=== PATIENT | female | born 1985 | race Caucasian/White ===

== ENCOUNTER 2017-02-16 21:47 | Inpatient (IN) | payer MEDICAID, OTHER ==
[2017-02-16] MEDS ORDERED: ZIPRASIDONE 20 MG VIAL IM PRN (21:51)
[2017-02-16] MEDS ORDERED: MAG HYDROX/AL HYDROX/SIMETH 30 ML CUP PO PRN (21:51)
[2017-02-16] MEDS ORDERED: LORazepam 1 MG TAB PO PRN (21:51)
[2017-02-16] MEDS ORDERED: MAGNESIUM HYDROXIDE 2,400 MG/10 ML CUP PO PRN (21:51)
[2017-02-17] MEDS: ARIPiprazole 10 MG TAB PO SCH (10:22)
[2017-02-17] MEDS: NICOTINE 14MG/24HR PATCH TRANSDERM SCH (10:24)
--- NOTE | 2017-02-17 12:41 | P.HP ---
Psychiatric H&P - . H&P Date: 02/17/17 History & Physical: IDENTIFYING DATA: Ms. Tobin is a 31-year-old female who presented to unit involuntarily with complaints of depression and suicidal ideation.. HISTORY OF PRESENT ILLNESS: I reviewed the medical record and interviewed her. According to the information from the EPS nurse she walked to police station in [facility] and told the officers that she is having thoughts of hanging herself. They called EMS and took her to [facility] emergency room. The EPS nurse noted that she had one prior suicide attempt last year for which she was hospitalized in a facility in [place]. During our interview her thinking was grossly disorganized. She was had difficulty staying on topic or explaining the reason for hospitalization. She perseverated on her marriage and extramarital affairs. Her thinking was so disorganized that it was unable to obtain a coherent history of present illness. 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 During the course of her conversation she described ideas of reference, thought broadcasting and thought insertion. At times she also appeared to be describing auditory hallucinations but when I ask questions to clarify the experience she gave a rambling and incoherent response. He signed consent for voluntary admission. She admits to feeling depressed and anxious. She denied current suicidal thoughts. She talked about drinking and smoking marijuana but denied that she has a problem "like my ." She gave an incoherent response to questions about current mental health treatment. PAST PSYCHIATRIC HISTORY: She appeared perplexed when I asked about outpatient mental health treatment. However, she admitted she had been in hospitals "like this" in [place], [place] and [place]. She cannot remember the reason for the admissions or the name of the facilities. PAST MEDICAL HISTORY: I believe she denied a history of major medical illness season. ALLERGIES: NO KNOWN DRUG ALLERGIES. SUBSTANCE USE HISTORY: She described occasional alcohol use and appeared to talk about marijuana use. She denied involvement in a substance use treatment program. FAMILY PSYCHIATRIC/SUBSTANCE USE HISTORY: She is unaware of family history of psychiatric substance use problems. LEGAL HISTORY: She talked about legal problems when she was young and when I asked her to explain herself she began talking about the proverb of "Nikhil in the whale" ... "It was like Nikhil in the whale. I was Nikhil but I was in the whale for a longer period of time ... ." SOCIAL HISTORY: She is born in [place]. I believe her parents . She graduated from high school. She has been from her since October 2015. He is [place] and lives with their 2 sons on [facility]. She alleged that she visits her son's on weekends but during the same sentence digressed to talking about having been barred from [facility]. She is currently employed a [employer]. He lives alone in an apartment in [facility] MENTAL STATUS EXAM: He presented as a casually groomed and morbidly obese 31- year-old female. She made eye contact and at times did not appear to attend to the exam. She had no distinguishing features or prominent physical abnormalities. She had dramatic facial expression. During the interview she frequently furrowed her brows and had extreme and frequent eye movements. She showed no abnormality of psychomotor activity. She slow but steady gait. Her speech was spontaneous with normal rate, rhythm and volume. She had no articulation difficulties. Her affect was dramatic and labile. She denied suicidal ideation or wishes. She denied homicidal ideation. She expressed feelings of hopelessness but denied helplessness or worthlessness. She ruminated on interpersonal relationships, extramarital affairs and her . She expressed ideas of reference, thought broadcasting and thought insertion. At time she was guarded and suspicious. She did not express an organized or coherent delusional belief. Her thinking was grossly disorganized , nonlinear the here and at times incoherent. She talked at one point about "hearing voices" but I was not certain whether she was describing auditory hallucinations. She did not appear to be responding to internal stimuli. STRENGTHS: Stable housing, stable income, good physical health. WEAKNESSES: Chronic mental illness, poor compliance with mental health treatment. IMPRESSION: She is a 31-year-old female who presented to unit with complaints of depression and suicidal ideation. However, her presentation is dominated by a marked disorganization in his thinking and other psychotic symptoms including ideas reference, thought insertion and thought broadcasting. Her thinking is so disorganized that she is unable to provide a coherent present or past history. She does not appear depressed, irritable hypomanic or manic. I suspect that she has a schizophrenia as opposed to a mood disorder. She should be treated on an inpatient basis with a combination of psychopharmacology and multimodal therapy. PRINCIPLE DIAGNOSIS: Unspecified psychotic disorder, rule out schizophrenia, rule out substance-induced psychotic disorder RECOMMENDATION: Continue inpatient hospitalization. The medicine for initial physical exam and medical history. idea worker to complete psychosocial assessment and obtain collateral information if possible. Obtain any records from [facility]. Begin Abilify 10 mg daily for the treatment of psychotic symptoms. Encourage participation in therapeutic groups and activities. Evaluate clinical status response to treatment on a daily basis. Allergies Allergy/AdvReac Type Severity Reaction Status Date / Time No Known Allergies Allergy Verified 02/16/17 23:00 Vital Signs Temp 97.9 F 02/17/17 03:22 Pulse 92 02/17/17 03:22 Resp 18 02/17/17 03:22 BP 135/61 02/17/17 03:22 Pulse Ox 97 02/16/17 23:27 Intake & Output 02/16/17 02/17/17 02/17/17 18:59 06:59 18:59 Weight 147.5 kg 02/17/17 08:51 02/17/17 09:40 02/17/17 12:36
[2017-02-18 04:59] VITALS: BMI 49.4
--- NOTE | 2017-02-18 08:01 | CONS ---
DATE OF CONSULTATION: CHIEF COMPLAINT: Major depression. HISTORY OF PRESENT ILLNESS: This is the first psych admission for this 31-year-old G2, P2, A0 obese white female. She came to emergency room because she felt overwhelmed, was severely depressed and was considering suicide. She has not been under psychiatric care before and she does not take any medication. REVIEW OF SYSTEMS: She has no headaches, chest pain, abdominal pain, vomiting, diarrhea, urinary complaints, diabetes, etc. Past medical history, family history and personal and social histories are unremarkable and noncontributory. She is on no medications and not allergic to any. She smokes cigarettes a day and she has had no surgery. PHYSICAL EXAMINATION: Blood pressure 115/75 with a ( ) 16, and she is afebrile. GENERAL: She appeared to be obese and in no acute distress. She was very depressed. Head, ears, eyes, nose, mouth and throat were normal. Neck veins not distended. Thyroid was not enlarged. Chest is clear. Cardiac exam is normal. The abdomen was protuberant and soft. EXTREMITIES: Normal. Neurologically, she is intact. IMPRESSION: Major depression with suicidal thoughts. RECOMMENDATIONS: None.
[2017-02-18] MEDS: ARIPiprazole 10 MG TAB PO SCH (09:33)
[2017-02-18] MEDS: NICOTINE 14MG/24HR PATCH TRANSDERM SCH (09:33)
--- NOTE | 2017-02-18 14:55 | P.PN ---
Progress Note - Text CC: " [I was struggling, I got overwhelmed, and then I started thinking about suicide. ] " History of Present Illness: Patient presented to local police telling them that she was having thoughts of hanging herself they called EMS and they took her to the [facility] emergency room. She then was transferred to [facility]. Patient reports that she was at her desk and there was a girl trying to put a cigarette on her desk and a voice Telling her speak speak up. She came back from her break and noticed something happening on her Facebook related to timeline. She couldn't explain what was actually happening but feels that the phone was doing something. States she has one voice this is been going on for about 1 month and said others speak through this one voice. Denies having ever had auditory hallucinations in the past but endorses the television speaking to her, seeing black figures in her backyard. Patient reports that she has not been able to focus for some time now. Reports she feels drained today even though she slept well. Patient asks if we called her work to let them know she was here. Patient reports this is her 4th admission to psychiatric inpatient setting. Denies she was prescribed medicine after discharge. Labs: [TSH within normal limits ] Mental Status Examination: Patient alert and oriented 3, poor eye contact, fair groomed in street clothing. Frequently looking at door, feeling as if someone was there. Speech low volume, decreased rate and production. Coherent, logical and circumstantial, tangential thought process. No KENNY, no FOI. + TB/TI] +auditory and visual hallucinations. +paranoid ideation, no brittany delusions + IOR. Memory [intact] Cognition average Mood [blunt], affect and flat, congruent with mood. Denies suicidal ideation, denies homicidal ideation. Insight limited; Judgement grossly intact for treatment purposes Assessment: [31 year old female presented to our unit with and suicidal ideation. It was noted that she had disorganized thought process and psychotic symptoms including ideas of reference, thought insertion and thought broadcasting. She continues to be paranoid, has , ideas of reference but no suicidal ideation or auditory hallucination. Plan: [Continue inpatient hospitalization for resolution of psychosis. Continue abilify 15mg qday. Will ask SW if she can meet with patient to call her work to let them know.
[2017-02-19] MEDS: ARIPiprazole 10 MG TAB PO SCH (08:54)
[2017-02-19] MEDS: NICOTINE 14MG/24HR PATCH TRANSDERM SCH (08:55)
--- NOTE | 2017-02-19 12:50 | P.PN ---
Progress Note - Text Interval history: Patient is seen in cross coverage today for Dr. Berg. She reports that she is feeling better. She feels like she can concentrate more now. She does seem to be tolerating the Abilify well. Mental status exam: She is alert and cooperative with the interview. Her mood is described as "calm." She does not verbalize any thoughts of harm to self or others. She does not voice any hallucinations. She does not show any agitation. She does not verbalize any paranoid thoughts. Her affect is restricted. Plan: We'll maintain current psychotropic medication. We will monitor for any medication side effects. Continue to cover this patient for Dr. Berg through the weekend.
[2017-02-20] MEDS: ARIPiprazole 10 MG TAB PO SCH (09:35)
[2017-02-20] MEDS: NICOTINE 14MG/24HR PATCH TRANSDERM SCH (09:35)
[2017-02-20] MEDS: ACETAMINOPHEN TAB 325 MG TAB PO PRN (09:35)
--- NOTE | 2017-02-20 17:32 | P.PN ---
Progress Note - Text Interval history: Patient is seen in cross coverage today for Dr. Berg. There is some question to whether the Abilify makes her tired. She states that after she eats her meals she feels like she needs to go to bed. She also does complain of some acid reflux. She does inquire regarding discharge planning. She says she is eating 3 meals a day here, whereas at home a lot of time she only eats one meal a day. Mental status exam: She is alert and cooperative with the interview. Her speech is fluent, not rapid or pressured. Thought processes are organized. Her mood overall appears to be improved. She denies any thoughts of harm to self or others. She denies any hallucinations. She does state that her concentration is doing better. She does not show any agitation. Plan: We'll change scheduling of Abilify to bedtime to see if this has any positive impact in terms of possible side effects. Dr. Berg resume care this patient starting tomorrow. We'll see if Dr. Escobar can follow-up regarding complaints of acid reflux.
[2017-02-21] MEDS: NICOTINE 14MG/24HR PATCH TRANSDERM SCH (09:55)
--- NOTE | 2017-02-21 15:49 | P.PN ---
Progress Note - Text CC: " [I'm feeling a lot better ] " History of Present Illness: Patient reports that she is definitely feeling better compared to when she came in and last Tuesday when we last met. Reports that her focus and concentration has improved she has also been in contact with her boss and that she did not lose her job. She states that she's had problems before but nothing as severe as this episode. No longer suicidal no homicidal ideation. Reports her sleep is good and that since the change of Abilify to bedtime, she is not sleeping during the day. Was able to give a coherent history of events leading up to her hospitalization. Labs: Reviewed labs Mental Status Examination: Patient alert and oriented 3, good eye contact, fair groomed in hospital attire. Speech normal volume, rate and production. Coherent, logical and circumstantial thought process. No KENNY, no FOI. [No TB/TW/ TI] Denied auditory and visual hallucinations. Denied paranoid ideation, delusions or IOR. Memory [grossly intact] Cognition[average] Recalled [3/0], [3/5]; Serial 7's [] Mood [euthymic], affect [full range, decreased intensity, congruent with mood. Denies suicidal ideation, denies homicidal ideation. Insight [partial]; Judgement [grossly intact] Assessment: [ 51-year-old female with a psychotic break and suicidal ideation admitted to the unit started on Abilify 10 mg and had a gradual response and today appearing euthymic without any psychosis. At this time the diagnoses will remain psychosis unspecified.] Plan: Patient wants to go home so she can return to work, there is no reason for her to remain longer. We will need to set up outpatient care
[2017-02-21] MEDS: ACETAMINOPHEN TAB 325 MG TAB PO PRN (20:24)
[2017-02-21] MEDS ORDERED: ARIPiprazole 10 MG TAB PO SCH (21:00)
[2017-02-22 06:53] VITALS: BP 111/51; PULSE 77; RESP 16; TEMP 98
[2017-02-22] MEDS ORDERED: PANTOPRAZOLE 40 MG TABLET PO SCH (07:30)
[2017-02-22] MEDS: NICOTINE 14MG/24HR PATCH TRANSDERM SCH (08:29)
--- NOTE | 2017-02-22 08:49 | P.DS ---
Providers Date of admission: 02/16/17 22:35 Attending physician: Anahy Berg MD Consults: 02/16/17 21:51 Consult Physician Routine Consulting Provider: Adams Escobar Consult Reason/Comments: follow up H & P Do you want consulting provider notified?: Yes Primary care physician: Adams Escobar - Discharge Diagnosis(es) (1) Psychoses Current Visit: Yes Status: Acute Onset Date: Unknown Hospital Course: Patient was admitted after going to a police station informing them she wanted to hang herself, she was brought to the ER and admitted on AVF. Her initial presentation was extreme thought disorganization, IOR, and paranoid ideation. Started on Abilify 10mg, and in a few days her thought process improved. She denied suicidal ideation, denied homicidal ideation. Her recall of events prior to her admission improved, she recognized she was unable to focus because of her thought disorganization. She made good use of the unit activities and expresses intent of continuing care in outpatient setting. She is safe for outpatient treatment. Patient Condition at Discharge: Stable Plan - Discharge Summary New Discharge Prescriptions: ARIPiprazole [Abilify] 10 mg PO HS #30 tab Discharge Medication List ARIPiprazole [Abilify] 10 mg PO HS #30 tab 02/22/17 [Rx] Discharge Disposition: HOME SELF-CARE
== END 2017-02-22 13:05 | disposition home or self-care (01) | DRG 885 ==
LOC: 3MHU 22:35
PROVIDERS: ADMIT Psychiatry & Neurology Addiction Medicine; ATTEND Psychiatry & Neurology Addiction Medicine
DX: F29 Unspecified psychosis not due to a substance or known physiological condition (principal); R45.851 Suicidal ideations; F32.9 Major depressive disorder, single episode, unspecified; E66.9 Obesity, unspecified; K21.9 Gastro-esophageal reflux disease without esophagitis; Z91.5 Personal history of self-harm
CPT/HCPCS: 84443

== ENCOUNTER 2018-01-11 02:19 | Inpatient (IN) | payer MEDICAID, OTHER ==
--- NOTE | 2018-01-11 02:59 | ED ---
Psych HPI - General Source: patient Mode of arrival: ambulatory <Daiana Rollins - Last Filed: 01/11/18 03:52> <Dom Diaz - Last Filed: 01/11/18 04:22> - General Chief Complaint: Psychiatric Symptoms Stated Complaint: mental health Time Seen by Provider: 01/11/18 02:32 - History of Present Illness Initial Comments: 32-year-old female patient presents to the emergency department today complaining of "seeing things". She reports she is here because she wants to make sure her "Boys are safe". Patient denies any suicidal or homicidal ideation. History is difficult to obtain as patient does exhibit flight of ideas and loose associations during interview. Patient states that she has been seeing spiders on her Bible, people in her kitchen that appear nickerson and assistant professor of biochemistry than normal people, she states that she has been seeing "gun holes" in her friends eyes, states she sees smoke coming from these holes. Patient states that she is supposed take medication however she does not want to. Patient states she is eating and sleeping. She denies any drug or alcohol use. Patient denies any current physical symptoms. Patient denies any recent rash, fever, chills, shortness breath, chest pain, abdominal pain, nausea, vomiting, diarrhea, constipation, back pain, numbness, tingling, dizziness, weakness, hematuria, dysuria, urinary urgency, urinary frequency, headache, visual changes , or any other complaints. (Daiana Rollins) - Related Data Home Medications Medication Instructions Recorded Confirmed No Known Home Medications [No 01/11/18 01/11/18 Known Home Medications] Allergies Allergy/AdvReac Type Severity Reaction Status Date / Time No Known Allergies Allergy Verified 01/11/18 02:29 Review of Systems ROS Other: All systems not noted in ROS Statement are negative. <Daiana Rollins - Last Filed: 01/11/18 03:52> ROS Other: All systems not noted in ROS Statement are negative. <Dom Diaz - Last Filed: 01/11/18 04:22> ROS Statement: Those systems with pertinent positive or pertinent negative responses have been documented in the HPI. Past Medical History Past Medical History: No Reported History History of Any Multi-Drug Resistant Organisms: None Reported Past Surgical History: Section Past Anesthesia/Blood Transfusion Reactions: No Reported Reaction Past Psychological History: Depression Smoking Status: Current every day smoker Past Alcohol Use History: None Reported Past Drug Use History: None Reported <Daiana Rollins - Last Filed: 01/11/18 03:52> General Exam Limitations: no limitations General appearance: alert, in no apparent distress, other (Physical well- developed, well-nourished adult female patient in no acute distress. Vital signs upon presentation are temperature 98.5F, pulse 74, respirations 18, blood pressure 126/84, pulse ox 98% on room air.) Eye exam: Present: normal appearance, PERRL, EOMI. Absent: scleral icterus, conjunctival injection, periorbital swelling ENT exam: Present: normal exam, normal oropharynx, mucous membranes moist Respiratory exam: Present: normal lung sounds bilaterally. Absent: respiratory distress, wheezes, rales, rhonchi, stridor Cardiovascular Exam: Present: regular rate, normal rhythm, normal heart sounds. Absent: systolic murmur, diastolic murmur, rubs, gallop, clicks GI/Abdominal exam: Present: soft, normal bowel sounds. Absent: distended, tenderness, guarding, rebound, rigid Neurological exam: Present: alert, oriented X3, CN II-XII intact Psychiatric exam: Present: normal affect, normal mood, other (Loose associations , flight of ideas). Absent: homicidal ideation, suicidal ideation Skin exam: Present: warm, dry, intact, normal color. Absent: rash <Daiana Rollins - Last Filed: 01/11/18 03:52> Vital Signs 01/11/18 02:21 Temperature 98.5 F Pulse Rate 74 Respiratory 18 Rate Blood Pressure 126/84 O2 Sat by Pulse 98 Oximetry Medical Decision Making <Daiana Rollins - Last Filed: 01/11/18 03:52> <Dom Diaz - Last Filed: 01/11/18 04:22> - Medical Decision Making 32-year-old female patient presented to the emergency department today exhibiting symptoms of psychosis. She is exhibiting flight of ideas, looseness of associations, and verbalizing reports of hallucinations. Patient denied suicidal or homicidal ideation. Patient was seen and evaluated by emergency psychiatric services. There is felt at this time she would benefit from inpatient admission. (Daiana Rollins) Patient was seen by mental health services, who will admit (Dom Diaz) Disposition <Daiana Rollins - Last Filed: 01/11/18 03:52> Decision Time: 04:22 <Dom Diaz - Last Filed: 01/11/18 04:22> Clinical Impression: Psychoses Disposition: TRANSFER TO PSYCH HOSP/UNIT Referrals: Adams Escobar MD [Primary Care Provider] - 1-2 days
[2018-01-11] MEDS ORDERED: MAGNESIUM HYDROXIDE 2,400 MG/10 ML CUP PO PRN (04:26)
[2018-01-11] MEDS ORDERED: MAG HYDROX/AL HYDROX/SIMETH 30 ML CUP PO PRN (04:26)
[2018-01-11] MEDS ORDERED: LORazepam 1 MG TAB PO PRN (04:26)
[2018-01-11] MEDS ORDERED: ZIPRASIDONE 20 MG VIAL IM PRN (04:26)
[2018-01-11 05:17] VITALS: BMI 46.0
[2018-01-11 07:40] LABS: Appearance,Urine Clear (Clear); Bilirubin,Urine Negative (Negative); Blood,Urine Negative (Negative); Color,Urine Light Yellow; Glucose,Urine (UA) Negative (Negative); Ketones,Urine Trace (Negative); Leukocyte Esterase,Urine Negative (Negative); Nitrite,Urine Negative (Negative); Protein,Urine Negative (Negative); Urobilinogen,Urine <2.0 mg/dL (<2.0)
[2018-01-11] MEDS: NICOTINE 14MG/24HR PATCH TRANSDERM SCH (08:38)
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
[2018-01-11 11:06] LABS: Urine Alcohol Negative (Negative); Urine Barbiturate Negative (Negative); Urine Cocaine Negative (Negative); Urine Methadone Negative (Negative); Urine Opiates Negative (Negative); Urine Phencyclidine Negative (Negative)
[2018-01-11] MEDS: ARIPiprazole 10 MG TAB PO SCH (11:18)
[2018-01-11] MEDS: ACETAMINOPHEN TAB 325 MG TAB PO PRN (17:12)
--- NOTE | 2018-01-11 18:08 | CONS ---
CONSULTATION CHIEF COMPLAINT: Acute psychosis. HISTORY OF PRESENT ILLNESS: This lady is in with the psychiatrist at this time and she will be re-evaluated at a different time when she is available. MMODL / IJN: [id number] /
[2018-01-12] MEDS: NICOTINE 14MG/24HR PATCH TRANSDERM SCH (09:54)
[2018-01-12] MEDS: ARIPiprazole 10 MG TAB PO SCH ×2 (09:55→21:44)
[2018-01-12] MEDS: ACETAMINOPHEN TAB 325 MG TAB PO PRN ×2 (09:55→21:43)
[2018-01-12 10:38] LABS: Basophils % (A) 0 %; Eosinophils # (A) 0.2 k/uL (0-0.7); Eosinophils % (A) 3 %; HCT 42.6 % (34.0-46.0); HGB 14.6 gm/dL (11.4-16.0); Lymphocytes # (A) 2.3 k/uL (1.0-4.8); Lymphocytes % (A) 28 %; MCH 29.5 pg (25.0-35.0); MCHC 34.2 g/dL (31.0-37.0); MCV 86.3 fL (80.0-100.0); Mean Platelet Volume 7.4; Monocytes # (A) 0.4 k/uL (0-1.0); Monocytes % (A) 5 %; Neutrophils # (A) 5.1 k/uL (1.3-7.7); Neutrophils % (A) 63 %; Platelet Count 288 k/uL (150-450); RBC 4.93 m/uL (3.80-5.40); RDW 12.3 % (11.5-15.5); WBC 8.1 k/uL (3.8-10.6)
--- NOTE | 2018-01-12 10:45 | P.PN ---
Progress Note - Text Progress Note Date: 01/12/18 Patient was seen for a follow-up examination. She has been taking her medications and attends groups. No behavioral issues. This is an obese ambulatory white female with adequate hygiene. She is polite and cooperative. She is somewhat hyperactive today. Her speech is spontaneous quite pressured with flight of ideas. She appears to be preoccupied with environmental issues, taoist issues, social issues etc. She said the petroleum oil is spilling polluting the water which comes and reuse it for growing vegetables and other things which are harmful to us, people of [facility] are fighting people of god, questioned the proof to say that Kevon was born on 10 of [birth year], talked about Bible, Koran, about Americans Indians and how they were treated with by a white people, said the word Jero means dumb people , Bhavani means all a and asked what means Og. She denies suicidal and homicidal ideas. But she believes we are living in an dangerous world and anything can happen to us. Her insight is poor and judgment is impaired quite grossly. She is well oriented with adequate memory. But she cannot concentrate and has flight of ideas. Plan: Increase Abilify to 10 mg twice a day. Continue groups and other plans.
[2018-01-12 11:12] LABS: ALT 9 U/L (9-52); AST 11 U/L (14-36); Albumin 3.9 g/dL (3.5-5.0); Alkaline Phosphatase 41 U/L (38-126); Anion Gap 14 mmol/L; Blood Urea Nitrogen 10 mg/dL (7-17); Calcium 9.4 mg/dL (8.4-10.2); Carbon Dioxide 25 mmol/L (22-30); Chloride 103 mmol/L (98-107); Cholesterol 174 mg/dL (<200); Glucose 96 mg/dL (74-99); HDL Cholesterol 53 mg/dL (40-60); LDL Cholesterol,Calculated 105 mg/dL (0-99); Sodium 142 mmol/L (137-145); Total Bilirubin 0.4 mg/dL (0.2-1.3); Total Protein 6.6 g/dL (6.3-8.2); Triglycerides 82 mg/dL (<150)
--- NOTE | 2018-01-12 17:24 | CONS ---
CONSULTATION CHIEF COMPLAINT: Depression and visual hallucinations. HISTORY OF PRESENT ILLNESS: This is another admission to the psych service for this 32-year-old white female. She is not a good historian and this may be related to her psychiatric issues. She does not seem to answer questions appropriately or reliably. Her history is probably better obtained in the psychiatrist's note. REVIEW OF SYSTEMS: She denies any constitutional symptoms other than having a sore throat for one month and some discomfort in her right ear. She denies any headaches, neurologic problems, shortness of breath, chest pain, cough, hemoptysis, heart disease, murmurs, hypertension, abdominal pain, nausea, vomiting, melena, hematochezia, jaundice, renal disease or failure, diabetes, etc. She has does not think she is on any medications and states she is not allergic to any. PAST SURGICAL HISTORY: When asked about surgery, she states she has had a . She has had 2 pregnancies and 2 children. SOCIAL HISTORY: She is not definite as to whether or not she smokes or drinks and she uses marijuana occasionally. She states she works at [employer]. PHYSICAL EXAMINATION: Blood pressure is 134/76 with a pulse of 80, respirations of 30 and she is afebrile. In general, she appeared to be slightly overweight and in no acute distress. Skin color is normal. Skin is warm, dry. Head, ears, eyes, nose, mouth, and throat were normal and neck veins were not distended. Chest is clear. Cardiac exam is normal sinus rhythm and no murmurs. The abdomen is soft and there are no masses. Extremities normal. Neurologically she seemed to be intact. IMPRESSION: 1. ? Schizophrenia. 2. Acute psychosis. RECOMMENDATIONS: None. MMODL / IJN: [id number] /
[2018-01-12 19:02] LABS: Hemoglobin A1C 5.3 % (4.0-6.0)
[2018-01-13] MEDS: NICOTINE 14MG/24HR PATCH TRANSDERM SCH (08:45)
[2018-01-13] MEDS: ARIPiprazole 10 MG TAB PO SCH ×2 (08:45→20:56)
--- NOTE | 2018-01-13 10:12 | P.PN ---
Progress Note - Text Progress Note Date: 01/13/18 Patient was seen for a routine follow-up examination. Today she talked about her and children living in [place] and she living in [place]. She said her gets lot of money in welfare in [place] and he doesn't want to come to [place] and work to make less money. Patient doesn't want to go to [place] because she doesn't like to live in [place] or to go through all the paperwork. She did not talk about restorationism today. This is an obese ambulatory white female with adequate hygiene. She is polite and cooperative. She does not show any psychomotor agitation or retardation. Her speech is spontaneous relevant and goal-directed. But she is over inclusive. Her mood is euthymic and affect is appropriate. She denies suicidal and homicidal ideas. She denies hallucinations and did not describe any delusional thinking. She is well oriented with adequate memory concentration etc. Plan: Continue Abilify 10 mg twice a day, groups and other therapies.
[2018-01-14 07:12] VITALS: RESP 16
[2018-01-14] MEDS: ARIPiprazole 10 MG TAB PO SCH ×2 (09:04→21:00)
--- NOTE | 2018-01-14 23:57 | P.PN ---
Progress Note - Text Progress Note Date: 01/14/18 Patient was seen today. She complains of visual hallucinations of seeing black figures and is wondering why she see these things. She also reports seeing her husbands spirit sometimes. She denies current symptoms of depression. She reports good sleep and appetite. She denies symptom of luis felipe. She says she did not to her groups today and states when people are talking loud it overwhelms her. She reports feeling tired and dizzy today and attributes it to the medications she is taking. Menatal status exam Patient is 32 year old woman. She is obese. She appears in fair grooming and hygiene. She is dressed casually. She maintains good eye contact. Her speech and thought process are pressured and tangentail. Her mood is reported as tired and affect constricted. She reports visual halluciantions that come and go. She denies auditory hallucinations. She denies paranoia. She denies current suicdal or homicidal ideations. She is alert and oriented to time palce and person. Assessment She complains of visual halluciantions that comes and goes. Plan: Continue Abilify 10 mg twice a day Monitor for symptoms
[2018-01-15] MEDS: ARIPiprazole 10 MG TAB PO SCH ×2 (09:05→21:08)
--- NOTE | 2018-01-15 20:10 | P.PN ---
Progress Note - Text Progress Note Date: 01/15/18 Pateint was seen today. She denies feeling dizzy today. She reports she is getting adjusted to her medications well. She reports going to her group therapies. She reports feeling tired at times. She reports talking to her today and says it went well for her. She denies symptoms of psychosis, luis felipe and depression. She reports good sleep and appetite. Mental status exam Patient is 32 year old woman. She is obese. She appears in fair grooming and hygiene. She is dressed casually. She maintains good eye contact. Her speech and thought process are goal directed. Her mood is reported as good and affect constricted. She denies auditory and hallucinations. She denies paranoia. She denies current suicidal or homicidal ideations. She is alert and oriented to time place and person. Assessment She reports her symptoms are getting better with her current medications Plan: Continue Abilify 10 mg twice a day Monitor for symptoms
[2018-01-16 06:43] VITALS: BP 116/62; PULSE 66; TEMP 98.2
[2018-01-16] MEDS: ARIPiprazole 10 MG TAB PO SCH (08:19)
[2018-01-16] MEDS: ACETAMINOPHEN TAB 325 MG TAB PO PRN (10:25)
--- NOTE | 2018-01-16 11:43 | P.DS ---
Providers Date of admission: 01/11/18 04:22 Expected date of discharge: 01/16/18 Attending physician: Steven Franco Consults: 01/11/18 04:26 Consult Physician Routine Consulting Provider: Adams Escobar Consult Reason/Comments: For H & P for Medical Follow Up Do you want consulting provider notified?: Yes, Notify in am Primary care physician: Adams Escobar Hospital Course: Patient had her psychiatric evaluation, physical examination and psychosocial evaluation. After psychiatric examination she was started on Abilify 10 mg a day. She continued to be delusional and garcia and her Abilify was increased to 10 mg twice a day. With this adjustment she got better, her mood was stable and her preoccupation with delusional thinking went away. She took medicines without any adverse effects. She attended groups and interacted with staff and other patients. She also agreed to continue with outpatient treatment. In view of all these it was agreed to discharge her. Condition on discharge: This is an obese ambulatory white female with adequate hygiene. She is polite and cooperative. She does not show any psychomotor agitation or retardation. Her speech is spontaneous relevant and goal- directed. Her mood is euthymic to cheerful and affect is appropriate to the thought content. She continues to deny suicide and homicide thoughts. She denies hallucinations but she still has some delusional thinking. Her insight and judgment have improved. She is well oriented with good memory concentration general knowledge etc. Diagnosis on discharge: Bipolar 1 disorder most recent episode unspecified F 31.9 NKDA Obesity. Patient was advised and agreed to take her medications as prescribed, not to drink alcohol or use drugs, not to drive or operate machinery if she feels sleepy, to learn better coping skills through therapy, to inform her doctor if she gets , to call her psychiatrist or therapist if she gets any suicidal thoughts and if he cannot get hold of them to go to nearest ER. Plan - Discharge Summary New Discharge Prescriptions: New ARIPiprazole [Abilify] 10 mg PO BID 30 Days #60 tab Discharge Medication List ARIPiprazole [Abilify] 10 mg PO BID 30 Days #60 tab 01/16/18 [Rx] Follow up Appointment(s)/Referral(s): Adams Escobar MD [Primary Care Provider] - 1-2 days
== END 2018-01-16 14:48 | disposition home or self-care (01) | DRG 885 ==
LOC: EC 02:19 → 3MHU 04:22
PROVIDERS: ADMIT Psychiatry & Neurology Psychiatry; ATTEND Psychiatry & Neurology Psychiatry
DX: F31.9 Bipolar disorder, unspecified (principal); Z68.42 Body mass index [BMI] 45.0-49.9, adult; E66.9 Obesity, unspecified; Z62.810 Personal history of physical and sexual abuse in childhood; F17.210 Nicotine dependence, cigarettes, uncomplicated; R44.1 Visual hallucinations; Z83.3 Family history of diabetes mellitus; Z82.0 Family history of epilepsy and other diseases of the nervous system
CPT/HCPCS: 80053; 80061; 80306; 81003; 81025; 82075; 83036; 84443; 85025; 99285

== ENCOUNTER 2019-01-01 09:00 | Emergency (ER) | payer MEDICAID, OTHER ==
[2019-01-01 09:12] VITALS: RESP 18
[2019-01-01] MEDS ORDERED: KETOROLAC 30 MG/ML 1 ML VIAL IVP STA (10:15)
[2019-01-01] MEDS ORDERED: PANTOPRAZOLE 40 MG/10 ML VIAL IVP STA (10:15)
[2019-01-01] MEDS ORDERED: SODIUM CHLORIDE 0.9% 1,000 ML IV STA (10:15)
--- NOTE | 2019-01-01 10:19 | ED ---
Abdominal Pain HPI - General Chief Complaint: Abdominal Pain Stated Complaint: lung pain Time Seen by Provider: 01/01/19 10:06 Source: patient, RN notes reviewed, old records reviewed, Caregiver Mode of arrival: ambulatory Limitations: no limitations - History of Present Illness Initial Comments: 33-year-old female presents for shortness a chief complaint of right-sided rib and shoulder pain. She reports it started 1 PM yesterday. She states that she was diagnosed with an pleasant 2 weeks ago. Patient reports is painful to take a deep breath. She reports it seems to be underneath her rib cage whenever she lays back it seems to be worse. Patient states that she's had no fall or trauma. - Related Data Home Medications Medication Instructions Recorded Confirmed Albuterol Inhaler [Ventolin Hfa 1 - 2 puff INHALATION RT-Q6H PRN 01/01/19 01/01/19 Inhaler] Previous Rx's Medication Instructions Recorded Amoxicillin/Potassium Clav 1 tab PO Q12HR #14 tab 01/01/19 [Augmentin 875-125 Tablet] Allergies Allergy/AdvReac Type Severity Reaction Status Date / Time No Known Allergies Allergy Verified 01/01/19 10:28 Review of Systems ROS Statement: Those systems with pertinent positive or pertinent negative responses have been documented in the HPI. ROS Other: All systems not noted in ROS Statement are negative. Past Medical History Past Medical History: No Reported History History of Any Multi-Drug Resistant Organisms: None Reported Past Surgical History: Section Past Anesthesia/Blood Transfusion Reactions: No Reported Reaction Past Psychological History: Depression Smoking Status: Former smoker Past Alcohol Use History: None Reported Past Drug Use History: None Reported General Exam - General Exam Comments Initial Comments: 33-year-old female. Patient appears in moderate discomfort. Limitations: no limitations General appearance: alert, in no apparent distress Head exam: Present: atraumatic, normocephalic, normal inspection Eye exam: Present: normal appearance, PERRL, EOMI. Absent: scleral icterus, conjunctival injection, periorbital swelling ENT exam: Present: normal exam, mucous membranes moist Neck exam: Present: normal inspection. Absent: tenderness, meningismus, lymphadenopathy Respiratory exam: Present: normal lung sounds bilaterally, other (Patient taking short shallow breaths.). Absent: respiratory distress, wheezes, rales, rhonchi, stridor Cardiovascular Exam: Present: regular rate, normal rhythm, normal heart sounds. Absent: systolic murmur, diastolic murmur, rubs, gallop, clicks GI/Abdominal exam: Present: soft, normal bowel sounds. Absent: distended, tenderness, guarding, rebound, rigid Extremities exam: Present: normal inspection, full ROM, normal capillary refill. Absent: tenderness, pedal edema, joint swelling, calf tenderness Back exam: Present: normal inspection Neurological exam: Present: alert, oriented X3, CN II-XII intact Psychiatric exam: Present: normal affect, normal mood Skin exam: Present: warm, dry, intact, normal color. Absent: rash Course Vital Signs 01/01/19 09:05 Temperature 97.7 F Pulse Rate 85 Respiratory 18 Rate Blood Pressure 112/64 O2 Sat by Pulse 98 Oximetry Medical Decision Making - Lab Data Result diagrams: 01/01/19 13:04 01/01/19 13:04 Lab Results 01/01/19 01/01/19 01/01/19 Range/Units 13:04 13:04 13:04 WBC 7.7 (3.8-10.6) k/uL RBC 4.86 (3.80-5.40) m/uL Hgb 13.8 (11.4-16.0) gm/dL Hct 41.3 (34.0-46.0) % MCV 85.0 (80.0-100.0) fL MCH 28.4 (25.0-35.0) pg MCHC 33.4 (31.0-37.0) g/dL RDW 13.1 (11.5-15.5) % Plt Count 139 L (150-450) k/uL Neutrophils % 66 % Lymphocytes % 24 % Monocytes % 7 % Eosinophils % 3 % Basophils % 0 % Neutrophils # 5.0 (1.3-7.7) k/uL Lymphocytes # 1.8 (1.0-4.8) k/uL Monocytes # 0.5 (0-1.0) k/uL Eosinophils # 0.3 (0-0.7) k/uL Basophils # 0.0 (0-0.2) k/uL PT 9.5 (9.0-12.0) sec INR 0.9 (<1.2) APTT 17.9 L (22.0-30.0) sec D-Dimer 1.06 H (<0.60) mg/L FEU Sodium 137 (137-145) mmol/L Potassium 4.8 (3.5-5.1) mmol/L Chloride 106 (98-107) mmol/L Carbon Dioxide 23 (22-30) mmol/L Anion Gap 8 mmol/L BUN 7 (7-17) mg/dL Creatinine 0.54 (0.52-1.04) mg/dL Est GFR (CKD-EPI)AfAm >90 (>60 ml/min/1.73 sqM) Est GFR (CKD-EPI)NonAf >90 (>60 ml/min/1.73 sqM) Glucose 97 (74-99) mg/dL Calcium 9.2 (8.4-10.2) mg/dL Total Bilirubin 0.8 (0.2-1.3) mg/dL AST 52 H (14-36) U/L ALT 77 H (9-52) U/L Alkaline Phosphatase 71 (38-126) U/L Total Protein 6.8 (6.3-8.2) g/dL Albumin 3.6 (3.5-5.0) g/dL Amylase 34 (30-110) U/L Lipase 101 (23-300) U/L Urine Color Urine Appearance (Clear) Urine pH (5.0-8.0) Ur Specific [place] (1.001-1.035) Urine Protein (Negative) Urine Glucose (UA) (Negative) Urine Ketones (Negative) Urine Blood (Negative) Urine Nitrite (Negative) Urine Bilirubin (Negative) Urine Urobilinogen (<2.0) mg/dL Ur Leukocyte Esterase (Negative) Urine RBC (0-5) /hpf Urine WBC (0-5) /hpf Ur Squamous Epith Cells (0-4) /hpf Urine Bacteria (None) /hpf Urine Mucus (None) /hpf Urine HCG, Qual (Not Detectd) 01/01/19 01/01/19 Range/Units 13:04 13:04 WBC (3.8-10.6) k/uL RBC (3.80-5.40) m/uL Hgb (11.4-16.0) gm/dL Hct (34.0-46.0) % MCV (80.0-100.0) fL MCH (25.0-35.0) pg MCHC (31.0-37.0) g/dL RDW (11.5-15.5) % Plt Count (150-450) k/uL Neutrophils % % Lymphocytes % % Monocytes % % Eosinophils % % Basophils % % Neutrophils # (1.3-7.7) k/uL Lymphocytes # (1.0-4.8) k/uL Monocytes # (0-1.0) k/uL Eosinophils # (0-0.7) k/uL Basophils # (0-0.2) k/uL PT (9.0-12.0) sec INR (<1.2) APTT (22.0-30.0) sec D-Dimer (<0.60) mg/L FEU Sodium (137-145) mmol/L Potassium (3.5-5.1) mmol/L Chloride (98-107) mmol/L Carbon Dioxide (22-30) mmol/L Anion Gap mmol/L BUN (7-17) mg/dL Creatinine (0.52-1.04) mg/dL Est GFR (CKD-EPI)AfAm (>60 ml/min/1.73 sqM) Est GFR (CKD-EPI)NonAf (>60 ml/min/1.73 sqM) Glucose (74-99) mg/dL Calcium (8.4-10.2) mg/dL Total Bilirubin (0.2-1.3) mg/dL AST (14-36) U/L ALT (9-52) U/L Alkaline Phosphatase (38-126) U/L Total Protein (6.3-8.2) g/dL Albumin (3.5-5.0) g/dL Amylase (30-110) U/L Lipase (23-300) U/L Urine Color Yellow Urine Appearance Clear (Clear) Urine pH 5.5 (5.0-8.0) Ur Specific [place] 1.022 (1.001-1.035) Urine Protein Negative (Negative) Urine Glucose (UA) Negative (Negative) Urine Ketones Negative (Negative) Urine Blood Negative (Negative) Urine Nitrite Positive H (Negative) Urine Bilirubin Negative (Negative) Urine Urobilinogen <2.0 (<2.0) mg/dL Ur Leukocyte Esterase Negative (Negative) Urine RBC 1 (0-5) /hpf Urine WBC 1 (0-5) /hpf Ur Squamous Epith Cells 3 (0-4) /hpf Urine Bacteria Moderate H (None) /hpf Urine Mucus Occasional H (None) /hpf Urine HCG, Qual Not Detected (Not Detectd) 01/01/19 15:03 EKG performed at 1319 shows sinus bradycardia otherwise normal EKG. Ventricular rate of 64 beats were minute. Goals 132 ms. QRS ration 76 most seconds. QT QTc is 432/4 and 90 ms. - Radiology Data Radiology results: report reviewed No evidence of pulmonary wasn't. Multifocal ground glass opacities throughout both lungs and trace pleural effusions and scattered bilaterals 3 mm pulmonary nodules. Primary consideration could be for atypical pneumonia however other etiologies are possible such as sarcoidosis. Bronchoscopy she be considered. Is a 3.1 cm right posterior thyroid gland mass for which thyroid ultrasound is recommended for further characterization. At the site persist fine needle aspiration would be recommended. Disposition Clinical Impression: Thyroid nodule, UTI (urinary tract infection), Pulmonary nodules, Biliary colic Disposition: HOME SELF-CARE Condition: Good Instructions (If sedation given, give patient instructions): Urinary Tract Infection in Women (DC), Thyroid Nodules (ED), Biliary Colic (ED) Additional Instructions: Return to ED if any alarming signs or symptoms occur. Patient should up with her primary care doctor in regards to her abnormal CT findings with thyroid and lungs. Patient should return to emergency department if any alarming signs or symptoms occur. Complete her antibiotics. Prescriptions: Amoxicillin/Potassium Clav [Augmentin 875-125 Tablet] 1 tab PO Q12HR #14 tab Is patient prescribed a controlled substance at d/c from ED?: No Referrals: Edmundo Mon MD [Primary Care Provider] - 1-2 days Time of Disposition: 15:28
[2019-01-01] MEDS ORDERED: MORPHINE SULFATE 4 MG/ML SYRINGE IVP STA (11:05)
[2019-01-01 13:10] LABS: Basophils % (A) 0 %; Eosinophils # (A) 0.3 k/uL (0-0.7); Eosinophils % (A) 3 %; HCT 41.3 % (34.0-46.0); HGB 13.8 gm/dL (11.4-16.0); Lymphocytes # (A) 1.8 k/uL (1.0-4.8); Lymphocytes % (A) 24 %; MCH 28.4 pg (25.0-35.0); MCHC 33.4 g/dL (31.0-37.0); Mean Platelet Volume 9.3; Monocytes # (A) 0.5 k/uL (0-1.0); Monocytes % (A) 7 %; Neutrophils % (A) 66 %; Platelet Count 139 k/uL (150-450); RBC 4.86 m/uL (3.80-5.40); RDW 13.1 % (11.5-15.5); WBC 7.7 k/uL (3.8-10.6)
[2019-01-01 13:19] LABS: ALT 77 U/L (9-52); AST 52 U/L (14-36); Albumin 3.6 g/dL (3.5-5.0); Alkaline Phosphatase 71 U/L (38-126); Amylase 34 U/L (30-110); Anion Gap 8 mmol/L; Blood Urea Nitrogen 7 mg/dL (7-17); Calcium 9.2 mg/dL (8.4-10.2); Carbon Dioxide 23 mmol/L (22-30); Chloride 106 mmol/L (98-107); Glucose 97 mg/dL (74-99); Lipase 101 U/L (23-300); Sodium 137 mmol/L (137-145); Total Bilirubin 0.8 mg/dL (0.2-1.3); Total Protein 6.8 g/dL (6.3-8.2)
[2019-01-01 13:20] LABS: Appearance,Urine Clear (Clear); Bacteria,Urine Moderate /hpf; Bilirubin,Urine Negative (Negative); Blood,Urine Negative (Negative); Color,Urine Yellow; Glucose,Urine (UA) Negative (Negative); Ketones,Urine Negative (Negative); Leukocyte Esterase,Urine Negative (Negative); Mucus,Urine Occasional /hpf; Nitrite,Urine Positive (Negative); PH, Urine 5.5 (5.0-8.0); Protein,Urine Negative (Negative); RBC,Urine 1 /hpf (0-5); Specific Gravity,Urine 1.022 (1.001-1.035); Squamous Epithelial Cell,Urine 3 /hpf (0-4); Urobilinogen,Urine <2.0 mg/dL (<2.0); WBC,Urine 1 /hpf (0-5)
[2019-01-01 13:21] LABS: Potassium 4.8 mmol/L (3.5-5.1)
[2019-01-01 13:33] LABS: INR 0.9 (<1.2); Prothrombin Time 9.5 sec (9.0-12.0)
--- NOTE | 2019-01-01 13:35 | XR ---
EXAMINATION TYPE: XR chest 2V DATE OF EXAM: 01/01/2019 COMPARISON: NONE HISTORY: Chest pain on inspiration. TECHNIQUE: Frontal and lateral views of the chest are obtained. FINDINGS: There is no focal air space opacity, pleural effusion, or pneumothorax seen. The cardiac silhouette size is within normal limits. The osseous structures are intact. IMPRESSION: No acute cardiopulmonary process.
--- NOTE | 2019-01-01 13:36 | XR ---
EXAMINATION TYPE: XR KUB DATE OF EXAM: 01/01/2019 1:30 PM CLINICAL HISTORY: Mid abdominal pain TECHNIQUE: Single upright image of the abdomen is obtained. COMPARISON: 08/01/2009. FINDINGS: Scattered gas is seen in nondilated small bowel loops. Gas and fecal material is seen in no ndilated colon. There is no visceromegaly, pneumoperitoneum, or abnormal calcification appreciated. T he lung bases are clear and the osseous structures are intact. IMPRESSION: Nonobstructive bowel gas pattern.
[2019-01-01 13:54] LABS: Partial Thromboplastin Time 17.9 sec (22.0-30.0)
[2019-01-01 13:55] LABS: D-Dimer 1.06 mg/L FEU (<0.60)
--- NOTE | 2019-01-01 14:57 | CT ---
EXAMINATION TYPE: CT chest angio for PE DATE OF EXAM: 01/01/2019 COMPARISON: NONE HISTORY: Right sided Chest pain with shortness of breath. CT DLP: 604.5 mGycm. Automated Exposure Control for Dose Reduction was Utilized. CONTRAST: CTA scan of the thorax is performed with IV Contrast, patient injected with 100 mL of Isovue 370, pul monary embolism protocol. MIP Images are created on CT scanner and reviewed. FINDINGS: LUNGS: There are scattered geographic groundglass opacities with multiple pulmonary nodules are sub-3 mm. Trace bilateral pleural effusions, right carotid and left are also seen with multifocal atelecta sis. Perihilar abnormal soft tissue prominence and/or elongated adenopathy are seen bilaterally, left greater than right measuring up to 1 cm in thickness. MEDIASTINUM: There is satisfactory enhancement of the pulmonary artery and its branches, there is no CT evidence for pulmonary embolism. There are no greater than 1 cm hilar or mediastinal lymph nodes. No cardiomegaly or pericardial effusion is seen. OTHER: Peripherally partially calcified 3.1 cm right posterior thyroid gland mass is seen. Minimal mu ltilevel degenerative change of the thoracic spine is noted. IMPRESSION: 1. No evidence of pulmonary embolus. 2. Multifocal groundglass opacities throughout both lungs with trace pleural effusions and few scatt ered bilateral sub-3 mm pulmonary nodules. Primary consideration should be for atypical pneumonia how ever other etiologies are possible such as sarcoidosis. Bronchoscopy could be considered if there is no improvement after treatment. 3. There is a 3.1 cm right posterior thyroid gland mass for which thyroid ultrasound is recommended f or further characterization. If this finding persists fine-needle aspiration would be recommended.
[2019-01-01] MEDS ORDERED: ACET/COD 300 MG/30 MG STARTER PACK 6 TAB BTL PO STA (15:29)
[2019-01-01 15:59] VITALS: BP 114/60; PULSE 65; TEMP 97.8
== END 2019-01-01 15:55 | disposition home or self-care (01) ==
LOC: EC 09:00
DX: N39.0 Urinary tract infection, site not specified (principal); E04.1 Nontoxic single thyroid nodule; R91.8 Other nonspecific abnormal finding of lung field; K80.50 Calculus of bile duct without cholangitis or cholecystitis without obstruction; Z87.891 Personal history of nicotine dependence
CPT/HCPCS: 36415; 93005; 85379; 80053; 82150; 83690; 85025; 85610; 85730; 81001; 81025; 71046; 74018; 71275; 99285; 96374; 96375 ×2; 96361 ×3; J2270; J1885; C9113; Q9967